=== PATIENT | male | born 1955 | race Caucasian/White ===

== ENCOUNTER 2023-02-13 21:34 | Inpatient (IN) | payer MEDICARE ==
[~2023-02-13] VITALS: Ht 48.3 cm; Wt 151.5 kg
[2023-02-13] MEDS ORDERED: METHYLPREDNISOLONE SOD SUCC 125MG/2ML (ACT-O-VIAL) IV STA (21:41)
[2023-02-13] MEDS ORDERED: ALBUTEROL (0.083%) 2.5MG/3ML NEB HHN STA (21:41)
[2023-02-13 22:10] VITALS: PULSE 140; RESP 20; O2SAT 100
[2023-02-13 22:48] LABS: DIFFERENTIAL COMMENT 1; HEMATOCRIT. 40.5 % (42.0-52.0); HEMOGLOBIN. 12.2 g/dL (14.0-18.0); MEAN CORPUSCULAR HGB CONC 30.1 g/dL (31.0-37.0); MEAN PLATELET VOLUME 8.9 fl (7.4-10.4); PLATELET 230 x1000/uL (130-400); RED BLOOD CELL COUNT 4.35 mill/uL (4.7-6.1); RED CELL DISTRIBUTION WIDTH 15.9 % (11.6-14.6); WHITE BLOOD COUNT 15.9 x1000/uL (4.5-11.0)
[2023-02-13 22:54] LABS: CHLORIDE 109 mEq/L (98-107); INDEX HEMOLYSI 1 (1-3); INDEX ICTERIC 2 (1-4); INDEX LIPEMIC 1 (1-3); POTASSIUM 3.7 mEq/L (3.5-5.1); SODIUM 143 mEq/L (136-145)
[2023-02-13 23:04] LABS: ALANINE AMINOTRANSFERASE 305 IU/L (13-61); ALBUMIN 2.7 g/dL (3.4-5.0); ASPARTATE AMINOTRANSFERASE 295 IU/L (15-37); BILIRUBIN TOTAL 2.3 mg/dL (0.1-1.0); CALCIUM 8.2 mg/dL (8.5-10.1); CARBON DIOXIDE 25 mEq/L (21-32); CREATININE 1.2 mg/dL (0.6-1.3); GLUCOSE 203 mg/dL (70-105); NT PRO B-TYPE NATRIURETIC PEP 447 pg/mL (5-125); PLATELET ESTIMATE NORMAL; PROTEIN TOTAL 6.4 g/dL (6.0-8.3); TROPONIN I HIGH SENSITIVITY 35 ng/L (<78); UREA NITROGEN BLOOD 17 mg/dL (7-21)
[2023-02-14] VITALS (9 sets, daily range): BP systolic 95–118; BP diastolic 57–85; PULSE 95–125; RESP 16–24; TEMP 97–98; O2SAT 90–92
[2023-02-14] MEDS ORDERED: LEVOFLOXACIN 750MG PREMIX 150 ML IV ONE
[2023-02-14] MEDS ORDERED: SODIUM CHLORIDE 0.9% 1,000 ML IV ONE
[2023-02-14] MEDS ORDERED: DIPHENHYDRAMINE 50MG/ML VIAL IV PRN (01:30)
[2023-02-14] MEDS ORDERED: ZOLPIDEM TARTRATE 5MG TABLET PO PRN (01:30)
[2023-02-14] MEDS ORDERED: IPRATROPIUM BROMIDE (0.02%) 0.5MG/2.5ML NEB HHN PRN (01:30)
[2023-02-14] MEDS ORDERED: GUAIFENESIN 200MG/10ML SUGAR FREE UDC PO PRN (01:30)
[2023-02-14] MEDS ORDERED: ACETAMINOPHEN 325MG TABLET PO PRN ×2 (01:30)
[2023-02-14] MEDS ORDERED: ONDANSETRON HCL 4MG/2ML INJ IV PRN (01:30)
[2023-02-14] MEDS: METHYLPREDNISOLONE SOD SUCC 125MG/2ML (ACT-O-VIAL) IV SCH ×4 (05:04→21:13)
[2023-02-14] MEDS: SODIUM CHLORIDE 0.9% INJ 3ML FLUSH IVF SCH ×3 (05:12→21:14)
[2023-02-14 08:40] LABS: TROPONIN I HIGH SENSITIVITY 45 ng/L (<78)
[2023-02-14 08:43] LABS: BG BASE EXCESS -2.5 mmol/L (-2.0-2.0); BG CARBOXYHEMOGLOBIN 0.6 % (0.5-1.5); BG DEOXYHEMOGLOBIN 7.5 % (0.0-5.0); BG FRACTION INSPIRED OXYGEN 36; BG HCO3 ACT 24.6 mmol/L (22.0-26.0); BG METHEMOGLOBIN 0.3 % (0.0-1.5); BG OXYGEN SATURATION 92.4 % (92.0-98.5); BG OXYHEMOGLOBIN 91.6 % (94.0-97.0); BG PCO2 52.4 mmHg (35.0-45.0); BG SAMPLE SITE RIGHT RADIAL; BG TOTAL HEMOGLOBIN 12.8 g/dL (12.0-18.0); BG VENT MODE NASAL CANNULA
[2023-02-14] MEDS: IPRATROPIUM BROMIDE (0.02%) 0.5MG/2.5ML NEB HHN SCH ×3 (08:45→21:30)
[2023-02-14] MEDS ORDERED: NICOTINE 14MG PATCH TD SCH (09:00)
[2023-02-14] MEDS: OLANZAPINE 10MG TABLET PO SCH (09:18)
[2023-02-14] MEDS: ENOXAPARIN 30MG/0.3ML SYR SUBCUT SCH ×2 (09:19→21:13)
[2023-02-14] MEDS: GUAIFENESIN 600MG ER TABLET PO SCH ×2 (09:19→21:13)
[2023-02-14 14:30] LABS: HEPATITIS B SURFACE ANTIGEN NEGATIVE (Negative)
[2023-02-14 17:41] LABS: TROPONIN I HIGH SENSITIVITY 40 ng/L (<78)
[2023-02-14] MEDS: LEVOFLOXACIN 750MG PREMIX 150 ML IV SCH (21:12)
[2023-02-14] MEDS: BUDESONIDE 0.5MG/2ML NEB HHN SCH (21:34)
[2023-02-15] VITALS (8 sets, daily range): BP systolic 115–138; BP diastolic 73–87; PULSE 88–104; RESP 18–24; TEMP 96.3–100.3; O2SAT 92
[2023-02-15] MEDS ORDERED: LEVOFLOXACIN 500MG PREMIX 100 ML IV SCH (01:30)
[2023-02-15] MEDS: IPRATROPIUM BROMIDE (0.02%) 0.5MG/2.5ML NEB HHN SCH ×2 (02:20→13:59)
[2023-02-15] MEDS: SODIUM CHLORIDE 0.9% INJ 3ML FLUSH IVF SCH ×3 (05:32→21:22)
[2023-02-15] MEDS: METHYLPREDNISOLONE SOD SUCC 125MG/2ML (ACT-O-VIAL) IV SCH ×4 (05:32→21:21)
[2023-02-15 07:10] LABS: HEMATOCRIT. 37.5 % (42.0-52.0); HEMOGLOBIN. 12.1 g/dL (14.0-18.0); MEAN CORPUSCULAR HEMOGLOBIN 28.2 pg (28.0-32.0); MEAN CORPUSCULAR HGB CONC 32.3 g/dL (31.0-37.0); MEAN CORPUSCULAR VOLUME 87.2 fL (80.0-94.0); MEAN PLATELET VOLUME 9.1 fl (7.4-10.4); PLATELET 246 x1000/uL (130-400); WHITE BLOOD COUNT 24.3 x1000/uL (4.5-11.0)
[2023-02-15 07:14] LABS: INDEX HEMOLYSI 1 (1-3); INDEX ICTERIC 1 (1-4); INDEX LIPEMIC 1 (1-3)
[2023-02-15 07:15] LABS: CHLORIDE 109 mEq/L (98-107); SODIUM 141 mEq/L (136-145)
[2023-02-15 07:23] LABS: ALANINE AMINOTRANSFERASE 284 IU/L (13-61); ALBUMIN 2.6 g/dL (3.4-5.0); ASPARTATE AMINOTRANSFERASE 176 IU/L (15-37); BILIRUBIN TOTAL 0.8 mg/dL (0.1-1.0); CALCIUM 8.7 mg/dL (8.5-10.1); CARBON DIOXIDE 28 mEq/L (21-32); CREATININE 1.7 mg/dL (0.6-1.3); GLUCOSE 174 mg/dL (70-105); PHOSPHORUS 3.7 mg/dL (2.5-4.9); PROTEIN TOTAL 6.9 g/dL (6.0-8.3); UREA NITROGEN BLOOD 39 mg/dL (7-21)
[2023-02-15 07:55] LABS: DIFFERENTIAL COMMENT 1
[2023-02-15] MEDS: GUAIFENESIN 600MG ER TABLET PO SCH ×2 (08:40→21:21)
[2023-02-15] MEDS: OLANZAPINE 10MG TABLET PO SCH (08:40)
[2023-02-15] MEDS: ENOXAPARIN 30MG/0.3ML SYR SUBCUT SCH ×2 (08:41→21:21)
[2023-02-15] MEDS: NICOTINE 21MG PATCH TD SCH (15:53)
[2023-02-15 16:49] LABS: PLATELET ESTIMATE NORMAL
[2023-02-15 18:00] LABS: HEPATITIS C AB NON REACTIVE (Neg) (Negative)
[2023-02-15] MEDS: BUDESONIDE 0.5MG/2ML NEB HHN SCH (21:15)
[2023-02-15] MEDS: LEVOFLOXACIN 750MG PREMIX 150 ML IV SCH (21:21)
[2023-02-16] VITALS (10 sets, daily range): BP systolic 118–154; BP diastolic 69–99; PULSE 89–105; RESP 18–22; TEMP 97.7–100.2; O2SAT 97
[2023-02-16] MEDS: IPRATROPIUM BROMIDE (0.02%) 0.5MG/2.5ML NEB HHN SCH ×3 (04:57→13:50)
[2023-02-16] MEDS: METHYLPREDNISOLONE SOD SUCC 125MG/2ML (ACT-O-VIAL) IV SCH ×4 (06:31→22:36)
[2023-02-16] MEDS: SODIUM CHLORIDE 0.9% INJ 3ML FLUSH IVF SCH ×3 (06:31→22:36)
[2023-02-16] MEDS: GUAIFENESIN 600MG ER TABLET PO SCH ×2 (08:08→22:34)
[2023-02-16] MEDS: OLANZAPINE 10MG TABLET PO SCH (08:08)
[2023-02-16] MEDS: ENOXAPARIN 30MG/0.3ML SYR SUBCUT SCH ×2 (08:08→22:36)
[2023-02-16] MEDS: NICOTINE 21MG PATCH TD SCH (08:08)
[2023-02-16] MEDS: BUDESONIDE 0.5MG/2ML NEB HHN SCH ×2 (08:18→22:07)
[2023-02-16] MEDS: AMLODIPINE 5MG TABLET PO SCH ×2 (10:17→22:35)
[2023-02-16] MEDS ORDERED: OLANZAPINE 10MG TABLET PO SCH (13:15)
[2023-02-16 13:47] LABS: BG DEOXYHEMOGLOBIN 9.4 % (0.0-5.0); BG HCO3 ACT 26.2 mmol/L (22.0-26.0); BG METHEMOGLOBIN 0.3 % (0.0-1.5); BG OXYGEN SATURATION 90.6 % (92.0-98.5); BG OXYHEMOGLOBIN 90.3 % (94.0-97.0); BG PCO2 43.7 mmHg (35.0-45.0); BG PH 7.395 (7.350-7.450); BG PO2 59.6 mmHg (75.0-100.0); BG SAMPLE SITE RIGHT RADIAL; BG TOTAL HEMOGLOBIN 12.4 g/dL (12.0-18.0); BG VENT MODE NASAL CANNULA
[2023-02-16 16:10] LABS: CLARITY URINE CLEAR (CLEAR); COLOR URINE YELLOW (YELLOW); GLUCOSE URINE 1+ (NEGATIVE); KETONES URINE NEGATIVE (NEGATIVE); LEUKOCYTE ESTERASE URINE NEGATIVE (NEGATIVE); NITRITE URINE NEGATIVE (NEGATIVE); OCCULT BLOOD URINE NEGATIVE (NEGATIVE); PH URINE 5.5 (4.5-8.0); PROTEIN URINE TRACE (NEGATIVE); SPECIFIC GRAVITY URINE 1.016 (1.005-1.030); UROBILINOGEN URINE 0.2 E.U./dL (0.2-1.0)
[2023-02-16 16:12] LABS: RBC URINE NONE SEEN /hpf (0-2); YEAST URINE NONE SEEN
[2023-02-16 17:04] LABS: BACTERIA URINE TRACE; SQUAMOUS EPITHELIAL CELL URINE RARE /lpf (RARE/1+); WBC URINE 0-2 /hpf (0-2)
[2023-02-16] MEDS: IPRATROPIUM/ALBUTEROL 0.5-3(2.5)MG/3ML NEB HHN SCH (22:06)
[2023-02-16] MEDS: LEVOFLOXACIN 750MG PREMIX 150 ML IV SCH (22:37)
[2023-02-17] VITALS (10 sets, daily range): BP systolic 105–147; BP diastolic 63–89; PULSE 90–103; RESP 16–20; TEMP 97.2–98.4; O2SAT 96
[2023-02-17] MEDS: IPRATROPIUM/ALBUTEROL 0.5-3(2.5)MG/3ML NEB HHN SCH ×4 (01:29→21:10)
[2023-02-17] MEDS: METHYLPREDNISOLONE SOD SUCC 125MG/2ML (ACT-O-VIAL) IV SCH ×4 (03:30→20:18)
[2023-02-17] MEDS: SODIUM CHLORIDE 0.9% INJ 3ML FLUSH IVF SCH ×3 (06:00→22:00)
[2023-02-17] MEDS: BUDESONIDE 0.5MG/2ML NEB HHN SCH ×2 (08:35→21:09)
[2023-02-17] MEDS: OLANZAPINE 10MG TABLET PO SCH (08:59)
[2023-02-17] MEDS: GUAIFENESIN 600MG ER TABLET PO SCH ×2 (08:59→20:17)
[2023-02-17] MEDS: AMLODIPINE 5MG TABLET PO SCH ×2 (08:59→21:00)
[2023-02-17] MEDS: NICOTINE 21MG PATCH TD SCH (09:00)
[2023-02-17] MEDS: ENOXAPARIN 30MG/0.3ML SYR SUBCUT SCH ×2 (09:00→20:17)
[2023-02-17 11:50] LABS: BASOPHILS % 0.2 % (0.0-2.0); HEMATOCRIT. 38.5 % (42.0-52.0); HEMOGLOBIN. 12.2 g/dL (14.0-18.0); LYMPHOCYTES % 13.6 % (20.0-50.0); MEAN CORPUSCULAR HEMOGLOBIN 27.9 pg (28.0-32.0); MEAN CORPUSCULAR HGB CONC 31.6 g/dL (31.0-37.0); MEAN CORPUSCULAR VOLUME 88.3 fL (80.0-94.0); MEAN PLATELET VOLUME 9.3 fl (7.4-10.4); MONOCYTES % 4.1 % (2.0-8.0); NEUTROPHILS % 82.1 % (40.0-76.0); PLATELET 247 x1000/uL (130-400); RED BLOOD CELL COUNT 4.36 mill/uL (4.7-6.1); RED CELL DISTRIBUTION WIDTH 14.9 % (11.6-14.6); WHITE BLOOD COUNT 14.5 x1000/uL (4.5-11.0)
[2023-02-17 14:24] LABS: ALANINE AMINOTRANSFERASE 129 IU/L (10-49); ALBUMIN 3.3 g/dL (3.2-4.8); ASPARTATE AMINOTRANSFERASE 30 IU/L (<34); BILIRUBIN TOTAL 0.5 mg/dL (0.1-1.0); CALCIUM 8.9 mg/dL (8.7-10.4); CARBON DIOXIDE 27 mEq/L (21-32); CHLORIDE 109 mEq/L (98-107); CREATININE 1.1 mg/dL (0.6-1.3); GLUCOSE 205 mg/dL (70-105); POTASSIUM 4.1 mEq/L (3.5-5.1); PROTEIN TOTAL 5.7 g/dL (6.0-8.3); SODIUM 146 mEq/L (136-145); UREA NITROGEN BLOOD 27 mg/dL (9-23)
[2023-02-17] MEDS: LEVOFLOXACIN 750MG PREMIX 150 ML IV SCH (20:52)
[2023-02-18] VITALS (9 sets, daily range): BP systolic 105–154; BP diastolic 62–85; PULSE 70–104; RESP 16–20; TEMP 96.5–98.8; O2SAT 92–98
[2023-02-18] MEDS: IPRATROPIUM/ALBUTEROL 0.5-3(2.5)MG/3ML NEB HHN SCH ×4 (02:47→20:08)
[2023-02-18] MEDS: METHYLPREDNISOLONE SOD SUCC 125MG/2ML (ACT-O-VIAL) IV SCH ×2 (03:56→09:32)
[2023-02-18] MEDS: SODIUM CHLORIDE 0.9% INJ 3ML FLUSH IVF SCH ×3 (06:50→20:33)
[2023-02-18] MEDS: NICOTINE 21MG PATCH TD SCH (09:00)
[2023-02-18] MEDS: ENOXAPARIN 30MG/0.3ML SYR SUBCUT SCH ×2 (09:32→20:28)
[2023-02-18] MEDS: AMLODIPINE 5MG TABLET PO SCH ×2 (09:34→20:33)
[2023-02-18] MEDS: GUAIFENESIN 600MG ER TABLET PO SCH ×2 (09:35→20:28)
[2023-02-18] MEDS: OLANZAPINE 10MG TABLET PO SCH (09:35)
[2023-02-18] MEDS: MONTELUKAST SODIUM 10MG TABLET PO SCH (18:41)
[2023-02-18] MEDS: LEVOFLOXACIN 750MG PREMIX 150 ML IV SCH (20:28)
[2023-02-19 03:50] VITALS: PULSE 90
[2023-02-19] MEDS: IPRATROPIUM/ALBUTEROL 0.5-3(2.5)MG/3ML NEB HHN SCH ×3 (03:50→14:18)
[2023-02-19] MEDS: SODIUM CHLORIDE 0.9% INJ 3ML FLUSH IVF SCH ×2 (06:12→14:03)
[2023-02-19 08:00] VITALS: BP 130/95; PULSE 101; RESP 22; TEMP 97.9
[2023-02-19 08:10] VITALS: PULSE 117; RESP 26; O2SAT 97
[2023-02-19] MEDS ORDERED: FUROSEMIDE 40MG/4ML VIAL IVP NR (08:45)
[2023-02-19] MEDS: OLANZAPINE 10MG TABLET PO SCH (08:46)
[2023-02-19] MEDS: GUAIFENESIN 600MG ER TABLET PO SCH (08:46)
[2023-02-19] MEDS: ENOXAPARIN 30MG/0.3ML SYR SUBCUT SCH (08:46)
[2023-02-19] MEDS: AMLODIPINE 5MG TABLET PO SCH (08:49)
[2023-02-19] MEDS ORDERED: PREDNISONE 20MG TABLET PO SCH (09:00)
[2023-02-19] MEDS: NICOTINE 21MG PATCH TD SCH (09:27)
[2023-02-19 11:02] LABS: BG BASE EXCESS 4.9 mmol/L (-2.0-2.0); BG CARBOXYHEMOGLOBIN 0.9 % (0.5-1.5); BG DEOXYHEMOGLOBIN 13.8 % (0.0-5.0); BG FRACTION INSPIRED OXYGEN 21; BG METHEMOGLOBIN 0.3 % (0.0-1.5); BG PCO2 46.1 mmHg (35.0-45.0); BG PH 7.432 (7.350-7.450); BG SAMPLE SITE RIGHT BRACHIAL; BG TOTAL HEMOGLOBIN 14.6 g/dL (12.0-18.0); BG VENT MODE ROOM AIR
[2023-02-19 12:00] VITALS: BP 113/78; PULSE 105; RESP 20; TEMP 96.7
[2023-02-19 16:00] VITALS: BP 139/88; PULSE 109; RESP 22; TEMP 97.9
[2023-02-19] MEDS: MONTELUKAST SODIUM 10MG TABLET PO SCH (17:00)
[2023-02-20] MEDS ORDERED: FUROSEMIDE 40MG TABLET PO SCH (09:00)
== END 2023-02-19 18:40 | DRG 871 ==
LOC: ER 21:49 → 7WST 02-14 00:25 → EDBEDREQ 02-14 00:37 → 6WST 02-17 13:30
PROVIDERS: ADMIT Internal Medicine; ATTEND Internal Medicine
DX: A41.51 Sepsis due to Escherichia coli [E. coli] (principal); J96.01 Acute respiratory failure with hypoxia; J44.1 Chronic obstructive pulmonary disease with (acute) exacerbation; G93.40 Encephalopathy, unspecified; Z68.44 Body mass index [BMI] 60.0-69.9, adult; E66.2 Morbid (severe) obesity with alveolar hypoventilation; K74.60 Unspecified cirrhosis of liver; F25.9 Schizoaffective disorder, unspecified; E78.00 Pure hypercholesterolemia, unspecified; F10.20 Alcohol dependence, uncomplicated; F17.210 Nicotine dependence, cigarettes, uncomplicated; Z88.0 Allergy status to penicillin; Z90.49 Acquired absence of other specified parts of digestive tract
CPT/HCPCS: 36415; 36600; 71045; 74176; 76700; 80053; 81003; 82375; 82805; 83735; 83880; 84100; 84145; 84484; 85025; 86705; 87077; 87186; 87340; 93005; 93306; 94640; 97162; 99291; J1200; J1650; J1940; J1956; J2930; J7030; J7512; J7626